=== PATIENT | female | born 1930 | race Caucasian/White ===

== ENCOUNTER 2016-11-02 16:53 | Emergency (ER) | payer MEDICARE, BC ==
[2016-11-02] MEDS ORDERED: NS 0.9% 1000 ML* 1,000 ML IV ONE (17:42)
[2016-11-02 18:16] LABS: Hematocrit 37 % (35-47); Hemoglobin 12.5 g/dl (12.0-16.0); Mean Corpuscular HGB Conc 34 g/dl (31-36); Mean Corpuscular Hemoglobin 29 pg (27-31); Mean Corpuscular Volume 85 fL (80-97); Mean Platelet Volume 8 um3 (7.4-10.4); Red Blood Count 4.37 10^6/ul (4.0-5.4); Red Cell Distribution Width 13 % (10.5-15); White Blood Count 11.2 10^3/ul (3.5-10.8)
[2016-11-02 18:31] LABS: Albumin 4.2 g/dL (3.2-5.2); BUN/Creatinine Ratio 23.1 (8-20); C Reactive Protein 14.18 mg/L (< 5.00); Calcium 9.5 mg/dL (8.6-10.3); EGFR African American 64.3 (>60); Globulin 2.6 g/dL (2-4); Total Protein 6.8 g/dL (6.4-8.9)
[2016-11-02] MEDS ORDERED: Iodixanol* (CONTRAST) 320 MG/ML 100 ML SDV IV ONE (18:45)
--- NOTE | 2016-11-02 19:44 | RAD ---
Indication: Abdominal pain with radiation to the back post fall October 30, 2016. Comparison: June 18, 2016 CT. Technique: Noncontrast CT vertex of skull through foramen magnum. Report: Moderately severe prominence of the cerebral sulci and moderate prominence of the cerebellar fissures reflecting atrophy. Proportional mild enlargement of the ventricles. Unremarkable basal cisterns. Narrow band of encephalomalacia at the LEFT external capsule without change most consistent with sequela of previous infarct. No new conde matter white matter obscuration or intra or extra-axial hemorrhage. Decreased density in the periventricular and subcortical white matter while non-specific is most likely due to chronic microangiopathy. Unremarkable orbital contents. Negative for calvarial or skull base fracture. Negative for scalp hematoma. Clear visualized paranasal sinuses and mastoid air spaces. IMPRESSION: 1. No evidence for traumatic brain injury or acute intracranial process. 2. Atrophy and stigmata of chronic small vessel ischemic disease. 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
--- NOTE | 2016-11-02 19:50 | RAD ---
INDICATION: Fall October 30, 2016. COMPARISON: May 20, 2015 CT. TECHNIQUE: Multidetector CT images foramen magnum to lung apices without contrast. Multiplanar reformation. REPORT: Goiter with LEFT thyroid lobe enlargement greater than RIGHT. Atherosclerotic calcification at the carotid bifurcations. Negative for paravertebral hematoma. Negative for vertebral body or posterior element fracture at any level. Bone density appears decreased throughout. Negative for facet subluxation at any level. Multilevel mild degenerative spondylosis and facet joint osteoarthritis. IMPRESSION: Negative for traumatic cervical spine injury.
--- NOTE | 2016-11-02 20:07 | RAD ---
INDICATION: Fall October 30, 2016. RIGHT side pain in the low back. COMPARISON: December 16, [address] May 20, [address] TECHNIQUE: Multidetector CT images were obtained from the lung bases to the ischial tuberosities. Evaluation of the viscera is limited without IV contrast. Multiplanar reformation. Bone algorithm multiplanar reformatted images of the lumbar sacral spine. REPORT: Visualized lung bases remarkable for mild dependent atelectasis. Post cholecystectomy. Unremarkable liver. Moderately atrophic pancreas. Unremarkable spleen. Small sliding type hiatal hernia. No CT abnormality of the small bowel. Suggestion of normal morphology appendix overlying the RIGHT pelvic sidewall. Unremarkable colon largely decompressed from the splenic flexure distal. Negative for ascites, free air, or significant hernias. Normal adrenal glands. Parapelvic renal cysts based on comparison with the previous contrast enhanced exam. Negative for hydronephrosis. Unremarkable ureters and moderately distended urinary bladder. The uterus is not visualized likely reflecting prior hysterectomy. Unremarkable adnexal regions. Negative for lymphadenopathy. Atherosclerotic plaque. Negative for aortoiliac aneurysm. Partially decompressed IVC indicating lower volume state. Negative for retroperitoneal hematoma. Negative for pelvic fracture or pelvic joint diastases. No evidence for fracture of the proximal femurs. Moderate bilateral hip joint osteoarthritis. Negative for paravertebral hematoma. Bone density appears decreased throughout. Bilateral chronic appearing L5 spondylolysis with associated grade 1 anterior spondylolisthesis. No acute vertebral body or posterior element fracture evident. Multilevel degenerative spondylosis and facet joint osteoarthritis. T12-L1: Unremarkable for age. L1-L2: Mild annular disc bulge. Negative for resulting spinal stenosis. L2-L3: Mild annular disc bulge. Degenerative spondylosis and posterior element osteoarthritis results in mild bilateral foraminal stenosis. L3-L4: Annular disc bulge and posterior element osteoarthritis results in mild acquired central canal stenosis and moderate bilateral foraminal stenosis. L4-L5: Moderate annular disc bulge and posterior element osteoarthritis results in mild to moderate acquired central canal stenosis and moderate bilateral foraminal stenosis. L5-S1: Uncovering of the intervertebral disc due to grade 1 anterolisthesis and rostrocaudal subluxation due to disc height loss results in severe bilateral foraminal stenosis. IMPRESSION: 1. No evidence for abdominal pelvic visceral injury within limits of noncontrast CT. 2. No acute abdominal pelvic visceral pathologic process evident. 3. No acute fracture or traumatic malalignment of the lumbar sacral spine. 4. Chronic bilateral L5 spondylolysis with associated grade 1 anterior spondylolisthesis without change. Multilevel degenerative spondylosis and facet joint osteoarthritis with associated central canal and foraminal stenosis as described without significant interval change compared with the December 16, 2015 exam.
--- NOTE | 2016-11-02 20:11 | RAD ---
Indication: LEFT knee pain post fall. Comparison: None. Technique: AP, tunnel, crosstable lateral, and sunrise views LEFT knee Report: Bone density is decreased throughout. Negative for fracture or malalignment. Small suprapatellar joint effusion. Tricompartmental osteoarthritis with moderately severe associated lateral joint space narrowing and diffuse chondrocalcinosis. Unremarkable soft tissue contours. IMPRESSION: Negative for fracture. Advanced osteoarthritis.
--- NOTE | 2016-11-02 20:14 | RAD ---
Indication: RIGHT elbow pain post fall. Comparison: None. Technique: AP, lateral, and oblique views RIGHT elbow Report: Normal articular alignment. Negative for significant fat pad displacement to indicate effusion. No cortical disruption or suspicious trabecular irregularity to suggest fracture. Mild osteophytosis and diffuse chondrocalcinosis. Unremarkable soft tissue contours. IMPRESSION: Negative for fracture or dislocation. Osteoarthritis.
--- NOTE | 2016-11-02 20:15 | RAD ---
Indication: RIGHT shoulder pain post fall. Comparison: None. Technique: Internal and external rotation AP and scapular Y views RIGHT shoulder Report: Bone density appears decreased throughout. Normal acromioclavicular and glenohumeral joint alignment. Negative for fracture. Mild osteoarthritis at the acromioclavicular and glenohumeral joints. Small inferior acromial bone spur. Unremarkable soft tissue contours. Diffuse skeletal muscle atrophy. IMPRESSION: Negative for fracture or dislocation. Osteoarthritis.
[2016-11-02 20:19] VITALS: BP 112/63
[2016-11-02] MEDS ORDERED: HYDROcodone/ACETAMIN 5-325 MG* 1 TAB PO ONE ×2 (20:47→21:01)
--- NOTE | 2016-11-02 20:54 | ED ---
I, Oh,Soohyun, scribed for Brannon Zuniga MD on 11/02/16 at 1738 . Complex/Multi-Sys Presentation - HPI Summary HPI Summary: This 86 y/o female presents to ED from [facility] for acute pain at left knee, right shoulder, right arm, and lower back pain s/p fall 3 days ago. Pt is also complaining abd pain. She denies any n/v/d, any bleeding, or decreased appetite. Pt states that she hit her head when she fell. Pt denies any LOC. PMHx includes HTN, a-fib with RVR. She is currently on baby ASA. Pt is right handed. Pt was given [place] at the [facility] RN. PSHx includes meniscus repair at left knee. - History Of Current Complaint Chief Complaint: EDBackInjuryPain Time Seen by Provider: 11/02/16 17:25 Hx Obtained From: Patient Onset/Duration: Sudden Onset, Lasting Days - 3 days ago, Still Present Timing: Constant Severity Currently: Mild Severity Initially: Mild - Allergies/Home Medications Allergies/Adverse Reactions: Allergies Allergy/AdvReac Type Severity Reaction Status Date / Time Codeine Allergy Altered Verified 07/02/16 09:52 Mental Status Diltiazem [Cardizem] Allergy Hives Verified 07/02/16 09:52 Penicillins Allergy RASH, Verified 07/02/16 09:52 SWOLLEN EYE Pregabalin [From Lyrica] Allergy Unknown Verified 07/02/16 09:52 Reaction Details Sulfa Drugs Allergy RASH, Verified 07/02/16 09:52 SWOLLEN EYE Telithromycin [From Ketek] Allergy Unknown Verified 07/02/16 09:52 Reaction Details PMH/Surg Hx/FS Hx/Imm Hx Endocrine/Hematology History: Reports: Hx Anemia Denies: Hx Diabetes Cardiovascular History: Reports: Hx Coronary Artery Disease - CHOLESTEROL CONTROL WITH MEDICATION, Hx Hypercholesterolemia, Hx Hypertension - on med, Hx Peripheral Vascular Disease - aortic stenosis, Other Cardiovascular Problems/ Disorders - CAD , hx R carotid endardectomy Denies: Hx Congestive Heart Failure, Hx Pacemaker/ICD GI History: Reports: Hx Gall Bladder Disease - hx layla, Other GI Disorders - hemorrhoids History: Reports: Hx Kidney Stones - 60 YEARS AGO Denies: Hx Renal Disease Musculoskeletal History: Reports: Hx Arthritis - GENERALIZED Sensory History: Reports: Hx Cataracts - removed, Hx Contacts or Glasses, Hx Glaucoma - BILATERAL EYES, Hx Vision Problem Denies: Hx Hearing Aid Opthamlomology History: Reports: Hx Cataracts - removed, Hx Contacts or Glasses , Hx Glaucoma - BILATERAL EYES, Hx Vision Problem Neurological History: Reports: Other Neuro Impairments/Disorders - pt admitted with AMS/Amnesia this admission Psychiatric History: Denies: Hx Panic Disorder - Cancer History Hx Chemotherapy: No Hx Radiation Therapy: No - Surgical History Surgery Procedure, Year, and Place: RIGHT CAROTID ENDARECTOMY, [facility] LASER TREATMENT TO CLEAR CLOUDINESS. AGE 15 (1944) APPENDECTOMY, [facility]. AGE 38 ( 1967) HYSTERECTOMY, [facility]. AGE 24 (1953) TONSILLECTOMY, [facility];. cataracts, gallbladder,knees TORN CARTILAGE-TORN MANISCUS,laminectomy Hx Anesthesia Reactions: No Infectious Disease History: No Infectious Disease History: Denies: Traveled Outside the [place] in Last 30 Days - Family History Known Family History: Negative: Cardiac Disease, Other - breast CA - Social History Occupation: Retired Alcohol Use: None Hx Substance Use: No Substance Use Type: Reports: None Hx Tobacco Use: No Smoking Status (MU): Never Smoked Tobacco Review of Systems Negative: Fever Positive: Abdominal Pain. Negative: Vomiting, Diarrhea, Nausea Negative: hematuria Positive: Other - positive pain for right shoulder, right arm, and left knee Negative: Anxious, Depressed All Other Systems Reviewed And Are Negative: Yes Physical Exam - Summary Physical Exam Summary: The patient is well-nourished in no acute distress and in no acute pain. The skin is warm and dry and skin color reflects adequate perfusion. Ecchymosis at right shoulder and left knee. HEENT: The head is normocephalic and atraumatic. Pain at right temporal area. The pupils are equal and reactive. The conjunctivae are clear and without drainage. Nares are patent and without drainage. Mouth reveals DRY mucous membranes and the throat is without erythema and exudate. The external ears are intact. The ear canals are patent and without drainage. The tympanic membranes are intact. Neck is supple with full range of motion and non-tender. There are no carotid bruits. There is no neck vein distension. reproducible tenderness throughout. Respiratory: Chest is non-tender. Lungs are clear to auscultation and breath sounds are symmetrical and equal. Cardiovascular: Hear is regular rate and rhythm. There is no murmur or rub auscultated. There is no peripheral edema and pulses are symmetrical and equal. Abdomen: The abdomen is soft and non-tender. There are normal bowel sounds heard in all four quadrants and there is no organomegaly palpated. Musculoskeletal: There is no back pain noted. There is good capillary refill. There is no peripheral edema or calf tenderness elicited. Negative mid line tenderness. Paraspinal tenderness at sacral lumbar area. Pain with ROM at left patellar. Pain with flexion at left knee. No reproducible tenderness at thoracic area and rib area. Neurological: Patient is alert and oriented to person, place and time. The patient has symmetrical motor strength in all four extremities. Cranial nerves are grossly intact. Deep tendon reflexes are symmetrical and equal in all four extremities. Psychiatric: The patient has an appropriate affect and does not exhibit any anxiety or depression. Triage Information Reviewed: Yes Vital Signs On Initial Exam: Initial Vitals Temp Pulse Resp BP Pulse Ox 99.1 F 59 16 143/74 94 11/02/16 17:00 11/02/16 17:00 11/02/16 17:00 11/02/16 17:00 11/02/16 17:00 Vital Signs Reviewed: Yes Diagnostics - Vital Signs Vital Signs Temp Pulse Resp BP Pulse Ox 11/02/16 17:00 99.1 F 59 16 143/74 94 - Laboratory Lab Results: Lab Results 11/02/16 11/02/16 11/02/16 Range/Units 18:05 18:05 18:05 WBC 11.2 H (3.5-10.8) 10^3/ul RBC 4.37 (4.0-5.4) 10^6/ul Hgb 12.5 (12.0-16.0) g/dl Hct 37 (35-47) % MCV 85 (80-97) fL MCH 29 (27-31) pg MCHC 34 (31-36) g/dl RDW 13 (10.5-15) % Plt Count 296 (150-450) 10^3/ul MPV 8 (7.4-10.4) um3 Neut % (Auto) 81.8 (38-83) % Lymph % (Auto) 8.7 L (25-47) % [place] % (Auto) 7.9 (1-9) % Eos % (Auto) 1.2 (0-6) % Baso % (Auto) 0.4 (0-2) % Absolute Neuts (auto) 9.2 H (1.5-7.7) 10^3/ul Absolute Lymphs (auto) 1.0 (1.0-4.8) 10^3/ul Absolute Monos (auto) 0.9 H (0-0.8) 10^3/ul Absolute Eos (auto) 0.1 (0-0.6) 10^3/ul Absolute Basos (auto) 0 (0-0.2) 10^3/ul Absolute Nucleated RBC 0 10^3/ul Nucleated RBC % 0 Sodium 128 L (133-145) mmol/L Potassium 4.0 (3.5-5.0) mmol/L Chloride 95 L (101-111) mmol/L Carbon Dioxide 25 (22-32) mmol/L Anion Gap 8 (2-11) mmol/L BUN 24 (6-24) mg/dL Creatinine 1.04 H (0.51-0.95) mg/dL Est GFR ( Amer) 64.3 (>60) Est GFR (Non-Af Amer) 50.0 (>60) BUN/Creatinine Ratio 23.1 H (8-20) Glucose 106 H (70-100) mg/dL Lactic Acid 0.7 (0.5-2.0) mmol/L Calcium 9.5 (8.6-10.3) mg/dL Total Bilirubin 1.00 (0.2-1.0) mg/dL AST 16 (13-39) U/L ALT 11 (7-52) U/L Alkaline Phosphatase 53 (34-104) U/L C-Reactive Protein 14.18 H (< 5.00) mg/L Total Protein 6.8 (6.4-8.9) g/dL Albumin 4.2 (3.2-5.2) g/dL Globulin 2.6 (2-4) g/dL Albumin/Globulin Ratio 1.6 (1-3) Lipase 19 (11.0-82.0) U/L Result Diagrams: 11/02/16 18:05 11/02/16 18:05 Lab Statement: Any lab studies that have been ordered have been reviewed, and results considered in the medical decision making process. - Radiology Left Knee Xray Interpretation: No Acute Changes - No fx. Advanced OA. Radiology Interpretation Completed By: Radiologist Right Elbow Xray Interpretation: No Acute Changes - Negative Fx or dislocation. OA. Radiology Interpretation Completed By: Radiologist Right Shoulder Xray Interpretation: No Acute Changes - Negative fx or dislocation. OA. Radiology Interpretation Completed By: Radiologist - CT Brain CT Interpretation: No Acute Changes - 1. No evidence for traumatic brain injury or acute intracranial process. 2. Atrophy and stigmata of chronic small vessel ischemic disease. 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 CT Interpretation Completed By: Radiologist C-spine CT Interpretation: No Acute Changes CT Interpretation Completed By: Radiologist L-spine CT Interpretation: No Acute Changes - 1. No evidence for abdominal pelvic visceral injury within limits of noncontrast CT. 2. No acute abdominal pelvic visceral pathologic process evident. 3. No acute fracture or traumatic malalignment of the lumbar sacral spine. 4. Chronic bilateral L5 spondylolysis with associated grade 1 anterior spondylolisthesis without change. Multilevel degenerative spondylosis and facet joint osteoarthritis with associated central canal and foraminal stenosis as described without significant interval change compared with the December 16, [address] Interpretation Completed By: Radiologist Ab/P CT Interpretation: No Acute Changes - 1. No evidence for abdominal pelvic visceral injury within limits of noncontrast CT. 2. No acute abdominal pelvic visceral pathologic process evident. 3. No acute fracture or traumatic malalignment of the lumbar sacral spine. 4. Chronic bilateral L5 spondylolysis with associated grade 1 anterior spondylolisthesis without change. Multilevel degenerative spondylosis and facet joint osteoarthritis with associated central canal and foraminal stenosis as described without significant interval change compared with the December 16, [address] Interpretation Completed By: Radiologist Re-Evaluation - Re-Evaluation First Eval Re-Evaluation Time: 20:44 Change: Unchanged Comment: Per RN, Pt is reported to have had improved pain after norco at [facility], and pain did not return throughout her ED course. CT/X-ray imaging results are shared with pt. Plan of care is discussed with pt, and pt now states that her pain returns and feels unsafe to return home. Complex Multi-Symp Course/Dx Assessment/Plan: THis 86 y/o female presents to ED from [facility] for pain at right shoulder, right elbow, and left knee after a mechanical fall 3 days ago. Pt was given norco at Urgent Care [facility] RN. Imaging results of CT and X- rays all indicate negative for fracture or any dislocation. They do indicate positive for OA. Pt will be given norco for pain control, and will be discharged with outpatient f/u. - Diagnoses Differential Diagnoses/HQI/PQRI: Closed Cranial Trauma, Metabolic Abnormality, Other - fracture, contusion, Provider Diagnoses: Head contusion, Contusion of right arm, Contusion of back, Contusion of left knee Discharge - Discharge Plan Condition: Stable Disposition: HOME Prescriptions: HYDROcodone/ACETAMIN 5-325 MG* [[place] 5-325 TAB*] 1 tab PO Q6H PRN #16 tab MDD 4 PRN Reason: pain Patient Education Materials: Knee Pain (ED), Scalp Contusion in Adults (ED), Contusion in Adults (ED), Hydrocodone/Acetaminophen (By mouth) Referrals: Tian Madrigal MD [Primary Care Provider] - 2 Days The documentation as recorded by the Ryan cullen Soohyun accurately reflects the service I personally performed and the decisions made by , Brannon Zuniga MD.
[2016-11-02 21:22] LABS: Urine Bacteria Absent (Absent); Urine Bilirubin Negative (Negative); Urine Glucose Negative (Negative); Urine Nitrite Negative (Negative)
== END 2016-11-03 06:15 | disposition home or self-care (01) ==
LOC: ED 16:53
DX: S00.93XA Contusion of unspecified part of head, initial encounter (principal); S40.021A Contusion of right upper arm, initial encounter; S80.02XA Contusion of left knee, initial encounter; S30.0XXA Contusion of lower back and pelvis, initial encounter; R10.9 Unspecified abdominal pain; M25.562 Pain in left knee; M25.511 Pain in right shoulder; M54.5 Low back pain; Z86.79 Personal history of other diseases of the circulatory system; W19.XXXA Unspecified fall, initial encounter; Y93.9 Activity, unspecified; Y92.9 Unspecified place or not applicable; Y99.9 Unspecified external cause status
CPT/HCPCS: 36415; 70450; 72125; 72131; 74176; 80053; 81003; 81015; 83605; 83690; 85025; 86140; 87086; 99283